=== PATIENT | female | born 1975 | race Caucasian/White ===

== ENCOUNTER → 2021-12-15 | Day surgery (SDC) | payer OTHER | END | disposition home or self-care (01) | LOC: JRADIR 08:46 | PROVIDERS: ATTEND Family Medicine Geriatric Medicine | PROC: 0G9K3ZX Drainage of Thyroid Gland, Percutaneous Approach, Diagnostic (ICD-10-PCS; principal; 2021-12-15) | DX: E04.1 Nontoxic single thyroid nodule (principal) | CPT/HCPCS: 10005; 76942; 88173; 88305-TC ==

== ENCOUNTER 2023-09-14 17:03 | Emergency (ER) | payer OTHER ==
[2023-09-14] MEDS ORDERED: ACETAMINOPHEN 500 MG TABLET (FP) PO ONE (17:58)
[2023-09-14] MEDS ORDERED: ACETAMINOPHEN 500 MG TABLET (FP) ONE (18:01)
[2023-09-14 20:21] VITALS: BP 110/78; PULSE 78; RESP 19; TEMP 97.9
== END 2023-09-14 20:21 | disposition home or self-care (01) ==
LOC: JERFT 17:03 → JER 17:03 → JERFT 20:21
DX: S00.81XA Abrasion of other part of head, initial encounter (principal); R22.0 Localized swelling, mass and lump, head; R51.9 Headache, unspecified; W00.0XXA Fall on same level due to ice and snow, initial encounter; Y93.K1 Activity, walking an animal
CPT/HCPCS: 70450-TC; 70486-TC; 99284-25